=== PATIENT | female | born 1955 | race Caucasian/White ===

== ENCOUNTER → 2017-04-23 | Outpatient (CLI) | payer OTHER ==
[~2017-04-23] MED LIST: ASPIRIN 81MG TA81 MG PO; ESTRADIOL1 MG PO; HYDROCODONE-APA1 TA2 PO; KLONOPIN1 MG PO; LISINOPRIL 20MG20 MG PO; MIRALAX17 GM/PACK PO; Mobic7.5 MG PO; NASONEX0.05 MG/AC; SYNTHROID 0.00.05 MG PO; ZOLOFT100 MG PO; [UNRECOGNIZED DRUG - OTHER]
--- NOTE | 2017-04-25 13:50 | RADIOLOGY REPORT PS360 ---
MRI-L-SPINE W/O, And bilateral buttock pain intermittent bilateral leg weakness MRI-3D RENDERING/MYELOGRAM HISTORY: LUMBAR PAIN lobe back pain for years bilateral leg pain Patient Age: 61 years: Female Ordering Physician: Javier Garcia MD TECHNIQUE: Sagittal STIR, T1, T2, axial T1 and T2. On 1.5T Siemens wide bore MRI. 3-D MR myelogram image set obtained & performed on MRI workstation. Additional sagittal thin section T2 weighted dataset obtained from this latter acquisition as well (---76 CPT) COMPARISON :No previous studies available for comparison FINDINGS Pronounced roto-scoliosis. .-With Prominent dextroscoliosis through the lumbar spine with rightward most qpronounced through L3 level.. Levoscoliosis seen above L2 L5/S1: disc spaces fairly well maintained only slightly narrowed to the right. No significant disc bulge. Moderate/generous facet hypertrophy L4/5/diffuse disc space narrowing. Slight leftward offset of L4 vertebra relative to L5. Prominent exuberant facet hypertrophy most evident the right these disc bulge most evident abdomen lateral to the right foramen. Together features do slightly on the spinal canal with mild central canal spinal stenosis. Recess and foraminal encroachment bilaterally most evident to the right L3/4. Prominent diffuse disc space narrowing most evident the left. Posterior spurring encroaches upon right foramen. Generous facet hypertrophy. Rotoscoliosis with L3 is rotated counterclockwise relative to L4 vertebral noted L2/3. Severe disc space narrowing to the left.. Prominent marginal osteophytes the left which also yields moderate encroachment upon the left foramen.] Reactive Endplate changes about this level almost evident.Only scant leftward offset of L2 relative to L3 vertebra. L1/2. The coronal image set nicely demonstrates the pronounced roughly 1 cm leftward offset of L1 vertebra body versus L2.-these features along with the moderate facet hypertrophy indents the thecal sac on the left and narrowing the spinal canal. Fairly pronounced narrowing and stenosis at the entry left foramen.. There is also slight clockwise rotation of L1 on L2 reversing the previous Roto scoliosis noted at L3/4. T12/L1 generous facet hypertrophy on the right indents the posterior right aspect of thecal sac. Disc space narrowing to the right at T12/L1 with diffuse posterior hypertrophic endplate ridging diffusely indenting the thecal sac. Moderate /generous right foraminal encroachment. Due to the combination of features. Scoliosis & deformity of spine and overall findings is less pronounced continuing above L1 vertebra T11/12 disc intact. Mild facet hypertrophy most evident the right T10-11 disc intact. Mild facet hypertrophy 3-D MR myelogram image set shows the prominent scoliosis with actually a surprisingly generous caliber thecal sac. Indentation upon the left at this at thecal sac most evident at L 1/2, due to the offset of vertebral bodies and leftward facet hypertrophy. Relatively mild narrowing thecal sac is seen at L4/5 IMPRESSION Severe dextrorotoscoliosis lumbar spine yields pronounced deformity the spine as detail at each level above. (dextroscoliosis most pronounced from L2 through L4) Multiple levels of notable recess and foraminal encroachment.. Requires clinical correlation as to symptoms Would specifically note Prominent leftward offset of L1 on L2 vertebra. This feature along with is generous left facet hypertrophy indents the left aspect of thecal sac & yields mild spinal stenosis at this level.; Along with notable foraminal encroachment bilaterally Also note mild spinal stenosis at L4/5, mainly due to the prominent prominent facet hypertrophy but also note asymmetric disc bulge towards right foramen. Generous right foraminal encroachment
== END ==
LOC: RAD 13:32
DX: M54.5 Low back pain (principal)

== ENCOUNTER 2017-07-05 09:43 | Day surgery (SDC) | payer OTHER ==
[~2017-07-05] VITALS: Ht 162.6 cm; Wt 80.7 kg
[~2017-07-05 09:43] MED LIST changes: +TIZANIDINE HCL 44 MG PO
[2017-07-05 09:53] VITALS: BP 131/80
[2017-07-05 10:14] VITALS: BP 131/80
[2017-07-05 10:15] VITALS: BP 134/86
[2017-07-05 10:49] VITALS: BP 96/51
--- NOTE | 2017-07-09 10:29 | Procedure Note ---
Procedure detail Date of procedure: 07/09/17 Anesthesiologist: Edilson Wood Complications: None Pre-procedure diagnosis: Degenerative disc disease lumbar spine multiple levels. Lumbar spondylosis. Multilevel lumbar facet arthropathy. Post-procedure diagnosis: Same. Indications for procedure: Very pleasant 62-year-old white female the comes our procedure clinic today for medial branch blocks/facet blocks L3-4, L4-5, L5-S1 bilateral her spine. Patient has axial back pain she describes as constant, dull, aching. Patient reports pain intensifies with flexion, extension, LEFT and RIGHT rotation. Procedure detail: Informed consent was obtained and the risk and benefits of the procedure was explained to the patient. Patient was taken to the procedure room where noninvasive monitors were placed, including noninvasive blood pressure cuff as well as pulse oximeter. The area over the lumbar spine was cleansed using chlorhexidine as a cleansing solution. I anesthetized the skin and subcutaneous tissues with 1% Lidocaine. I placed 22-gauge spinal needles into the facet joint / medial branches of [L3-L4, L4-L5, and L5-S1] bilaterally. Needle placement was confirmed with fluoroscopy. After confirmation of needle placement, each site was injected with 1 mL of 1% lidocaine and 0.25 % Marcaine and 10 mg of Depo- Medrol. A total of 80 mg of depo medrol was used for bilateral medial branch blocks of [L3-L4, L4-L5, and L5-S1] bilaterally. Patient tolerated the procedure without difficulty. There were no complications. Plan and disposition: Patient was reevaluated 10 minutes post procedure. She had a transient vagal response following procedure. However, 10 minutes postprocedure she doing very well. She reports 90 percent improvement terms for lumbar back pain in flexion, extension, LEFT and RIGHT rotation. at 1029
== END 2017-07-05 10:50 | disposition home or self-care (01) ==
LOC: PM 09:43
PROC: 3E0T3BZ Introduction of Anesthetic Agent into Peripheral Nerves and Plexi, Percutaneous Approach (ICD-10-PCS; principal; 2017-07-05)
PROC: 3E0T33Z Introduction of Anti-inflammatory into Peripheral Nerves and Plexi, Percutaneous Approach (ICD-10-PCS; 2017-07-05)
PROC: BR161ZZ Fluoroscopy of Lumbar Facet Joint(s) using Low Osmolar Contrast (ICD-10-PCS; 2017-07-05)
DX: M51.36 Other intervertebral disc degeneration, lumbar region (principal); M47.896 Other spondylosis, lumbar region; M54.06 Panniculitis affecting regions of neck and back, lumbar region
CPT/HCPCS: J1040